=== PATIENT | female | born 1980 | race American Indian/Alaskan Native ===

== ENCOUNTER 2018-11-11 09:16 | Emergency (ER) | payer BC ==
[2018-11-11 09:49] VITALS: RESP 36; TEMP 97.6; O2SAT 100
--- NOTE | 2018-11-11 10:01 | C.PDOC ---
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 SX ONSET WHILE "RECEIVING BAD NEWS". 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 NO SI/SA. CURRENTLY FEELS IMPROVED COMPARED TO INITIAL EXAM NONTOXIC PSYCH CRYING BUT CONSOLABLE NO ACUTE PSYCHOSIS, NO SI/SA RRR NARD REMAINDER NEG MDM PT OFFERED XANAX, DOES NOT WISH @ THIS TIME. PENDING FAMILY CHIEF CLIENT OFFICER Time Seen by Provider: 11/11/18 09:36 Chief Complaint (Nursing): Anxiety History Per: Patient History/Exam Limitations: no limitations Onset/Duration Of Symptoms: Hrs Current Symptoms Are (Timing): Still Present Severity: Moderate Past Medical History Reviewed: Historical Data, Nursing Documentation, Vital Signs Vital Signs: Last Vital Signs Temp 97.6 F 11/11/18 09:29 Pulse 84 11/11/18 09:29 Resp 36 H 11/11/18 09:29 BP 129/82 11/11/18 09:29 Pulse Ox 100 11/11/18 09:29 - Medical History PMH: No Chronic Diseases Surgical History: No Surg Hx Family History: States: No Known Family Hx - Social History Hx Alcohol Use: No Hx Substance Use: No - Immunization History Hx Tetanus Toxoid Vaccination: No Hx Influenza Vaccination: No Hx Pneumococcal Vaccination: No Review Of Systems Except As Marked, All Systems Reviewed And Found Negative. Constitutional: Negative for: Fever, Chills Cardiovascular: Positive for: Palpitations. Negative for: Chest Pain Respiratory: Negative for: Shortness of Breath Gastrointestinal: Negative for: Nausea, Vomiting Neurological: Negative for: Dizziness Physical Exam - Physical Exam Appears: Non-toxic Skin: Normal Color, Warm, Dry Head: Atraumatic, Normacephalic Eye(s): bilateral: Normal Inspection Neck: Supple Chest: Symmetrical Cardiovascular: Rhythm Regular (RRR) Respiratory: Normal Breath Sounds, No Rales, No Rhonchi, No Wheezing, Other (NARD) Gastrointestinal/Abdominal: Normal Exam, Soft, No Tenderness, No Guarding, No Rebound Neurological/Psych: Oriented x3, Normal Speech, Other (pysch: crying but consolable, no acute pyschosis, no SI/SA) ED Course And Treatment ECG: Interpreted By Me ECG Rhythm: Sinus Rhythm ECG Interpretation: Normal Rate From EC O2 Sat by Pulse Oximetry: 100 (RA) Pulse Ox Interpretation: Normal Reevaluation Time: 10:11 Reassessment Condition: Improved ( AT BEDSIDE. PT WISHES DC HOME) Medical Decision Making Medical Decision Making: Plan: --EKG Updates: PT OFFERED XANAX, DOES NOT WISH @ THIS TIME. PENDING FAMILY CHIEF CLIENT OFFICER Disposition Counseled Patient/Family Regarding: Studies Performed, Diagnosis, Need For Followup - Disposition Referrals: YOUR,PMD [Other] Disposition: HOME/ ROUTINE Disposition Time: 10:11 Condition: IMPROVED Instructions: Anxiety, Adult (DC) Forms: [employer] ([place]), Work Excuse - Clinical Impression Clinical Impression: Grief reaction, Anxiety - Scribe Statement The provider has reviewed the documentation as recorded by the Kilo[facility] Sai Alejo Provider Attestation: All medical record entries made by the Scribe were at my direction and personally dictated by me. I have reviewed the chart and agree that the record accurately reflects my personal performance of the history, physical exam, medical decision making, and the department course for this patient. I have also personally directed, reviewed, and agree with the discharge instructions and disposition.
[2018-11-11 10:22] VITALS: BP 122/92; PULSE 78
--- NOTE | 2018-11-12 20:31 | CARD ---
APPROVED REPORT Date of service: 11/11/2018 EKG Measurement Heart [id number] <Conclusion> Normal sinus rhythm Nonspecific ST abnormality Abnormal ECG
== END 2018-11-11 10:13 | disposition home or self-care (01) ==
LOC: C.ER 09:16
DX: F43.22 Adjustment disorder with anxiety (principal)